=== PATIENT | male | born 1970 | race Caucasian/White ===

== ENCOUNTER 2022-01-14 22:44 | Emergency (ER) | payer OTHER ==
[2022-01-15] MEDS ORDERED: HYDROCODONE/CHLORPHEN 5 ML/OSYR ONE (00:38)
[2022-01-15 00:55] LABS: SARS-COV-2 RT PCR NEGATIVE (NEGATIVE)
[2022-01-15 00:59] LABS: Absolute Lymphocytes (CBC) 3.1 K/uL (0.7-4.9); Hematocrit 41.6 % (39.6-49.0); Lymphocytes % 31.8 % (15.3-44.8); MCV 102.3 fL (80-100); MPV 8.3 fL (7.6-11.3); RBC Red Blood Cell Count 4.07 M/uL (4.33-5.43)
[2022-01-15 01:01] LABS: Protime INR 0.89
[2022-01-15 01:14] LABS: Albumin 3.4 g/dL (3.4-5.0); Bilirubin Direct 0.1 mg/dL (0-0.2); Bilirubin Total 0.6 mg/dL (0.2-1.0); Magnesium 2.5 mg/dL (1.8-2.4); Protein, Total 7.6 g/dL (6.4-8.2); Troponin High Sensitivity 5.7 pg/mL (<58.9)
--- NOTE | 2022-01-15 03:12 | EDPHYS ---
Physician Documentation [facility] Name: Chris Banuelos Age: 51 yrs Sex: Male : 1970 Arrival Date: 01/14/2022 Time: 22:49 Bed 12 Private MD: ED Physician Kashif Mora HPI: 01/14 23:55 This 51 yrs old Male presents to ER via Ambulatory with complaints of Cough. cp 23:55 The patient or guardian reports cough, that is constant, with productive sputum, that cp is bloody, that is purulent. Onset: The symptoms/episode began/occurred last week. Associated signs and symptoms: Pertinent positives: upper back pain, Pertinent negatives: fever. 23:55 Patient reports recent travel by car from [place]. cp Historical: - Allergies: 22:57 No Known Allergies; tw5 - Home Meds: 22:57 Prednisolone Oral [Active]; benzonatate 200 mg oral cap 1 cap 3 times per day [Active]; tw5 - PMHx: 22:57 None; tw5 - PSHx: 22:57 None; tw5 - Immunization history:: Flu vaccine is up to date. - Social history:: Smoking status: Reported history of juuling and/or vaping. ROS: 23:58 Constitutional: Negative for body aches, chills, fever, poor PO intake. cp 23:58 Eyes: Negative for injury, pain, redness, and discharge. cp 23:58 ENT: Positive for sore throat, Negative for drainage from ear(s), ear pain, difficulty swallowing, difficulty handling secretions. 23:58 Cardiovascular: Positive for chest pain, with cough, Negative for edema, palpitations. 23:58 Respiratory: Positive for cough, "sounds productive", hemoptysis, Negative for wheezing. 23:58 Abdomen/GI: Negative for abdominal pain, vomiting, diarrhea, constipation. 23:58 Back: Positive for pain at rest, pain with movement. 23:58 Neuro: Negative for altered mental status, dizziness, headache, numbness, syncope, weakness. 23:58 All other systems are negative. Exam: 23:59 Constitutional: The patient appears in no acute distress, alert, awake, cp non-diaphoretic, non-toxic, well developed, well nourished, obese. 23:59 Head/Face: Normocephalic, atraumatic. cp 23:59 Eyes: Periorbital structures: appear normal, Conjunctiva: normal, no exudate, no injection, Sclera: no appreciated abnormality, Lids and lashes: appear normal, bilaterally. 23:59 ENT: External ear(s): are unremarkable, Ear canal(s): are normal, clear, TM's: dullness, bilaterally, Nose: is normal, Mouth: Lips: moist, Oral mucosa: moist, Posterior pharynx: Airway: no evidence of obstruction, patent, Tonsils: no enlargement, no exudate, swelling, is not appreciated, erythema, that is mild, exudate, is not appreciated. 23:59 Neck: ROM/movement: is normal, is supple, without pain, no range of motions limitations, no meningismus, no nuchal rigidity. 23:59 Chest/axilla: Inspection: normal. 23:59 Cardiovascular: Rate: normal, Rhythm: regular, Edema: is not appreciated, JVD: is not appreciated. 23:59 Respiratory: the patient does not display signs of respiratory distress, Respirations: normal, no use of accessory muscles, no retractions, labored breathing, is not present, Breath sounds: bronchial sounds, that are mild, are heard diffusely, decreased breath sounds, are not appreciated, stridor, is not appreciated, + upper airway congestion. wheezing: is not appreciated. 23:59 Abdomen/GI: Inspection: abdomen appears normal, Palpation: abdomen is soft and non-tender, in all quadrants. 23:59 Back: pain, that is mild, of the left subscapular area and right subscapular area, ROM is normal. 23:59 Musculoskeletal/extremity: DVT Exam: no pain, no swelling, no tenderness. 23:59 Neuro: Orientation: to person, place \\T\\ time. Mentation: is normal, Motor: moves all fours, strength is normal, Sensation: is normal. 01/15 00:54 ECG was reviewed by the Attending Physician. cp Vital Signs: 01/14 22:55 BP 111 / 79; Pulse 77; Resp 20; Temp 98.7; Pulse Ox 97% on R/A; Weight 127.01 kg; tw5 Height 5 ft. 11 in. (180.34 cm); Pain 5/10; 01/15 01:10 BP 116 / 75; Pulse 66; Resp 22; Temp 98; Pulse Ox 99% ; Pain 0/10; pf1 02:30 BP 117 / 70; Pulse 97; Resp 20; Temp 98.2; Pulse Ox 97% ; Pain 0/10; pf1 03:36 BP 112 / 68; Pulse 82; Resp 20; Temp 97.9; Pulse Ox 98% ; Pain 0/10; pf1 01/14 22:55 Body Mass Index 39.05 (127.01 kg, 180.34 cm) tw5 MDM: 01/14 23:06 Patient medically screened. cp 01/15 01:00 Differential Diagnosis: Bronchitis Influenza Pneumonia Other pulmonary embolism, cp COVID-19. 03:10 Data reviewed: vital signs, nurses notes, lab test result(s), EKG, radiologic studies, cp CT scan, plain films. 03:10 Test interpretation: by ED physician or midlevel provider: ECG, plain radiologic cp studies. Counseling: I had a detailed discussion with the patient and/or guardian regarding: the historical points, exam findings, and any diagnostic results supporting the discharge/admit diagnosis, lab results, radiology results, the need for outpatient follow up, a family practitioner, to return to the emergency department if symptoms worsen or persist or if there are any questions or concerns that arise at home. Response to treatment: the patient's symptoms have markedly improved after treatment, and as a result, I will discharge patient. 01/14 23:51 Order name: COVID-19/FLU A+B/RSV; Complete Time: 01:17 pf1 01/15 00:12 Order name: Strep cp 01/15 00:12 Order name: Basic Metabolic Panel; Complete Time: 01: cp 01/15 01:17 Interpretation: Normal except: CL 111; GFR 77; CA 8.2. cp 01/15 00:12 Order name: CBC with Diff; Complete Time: :17 cp 01/15 01:18 Interpretation: Normal except: RBC 4.07; MCV 102.3. cp 01/15 00:12 Order name: D-Dimer; Complete Time: : cp 01/15 00:12 Order name: LFT's; Complete Time: 01: cp 01/15 00:12 Order name: Magnesium; Complete Time: : cp 01/15 00:12 Order name: NT PRO-BNP; Complete Time: 01: cp 01/15 00:12 Order name: PT-INR; Complete Time: 01:17 cp 01/15 00:12 Order name: Troponin HS; Complete Time: 01:17 cp 01/15 00:12 Order name: Ptt, Activated; Complete Time: 01:17 cp 01/15 02:04 Order name: Throat Culture EDMS 01/15 00:12 Order name: XRAY Chest (1 view) 01/15 00:12 Order name: EKG; Complete Time: 00:13 01/15 00:12 Order name: Cardiac monitoring; Complete Time: 01:20 01/15 00:12 Order name: EKG - Nurse/Tech; Complete Time: 00:53 01/15 00:12 Order name: IV Saline Lock; Complete Time: 00:47 01/15 00:12 Order name: Labs collected and sent; Complete Time: 00:47 01/15 00:12 Order name: O2 Per Protocol; Complete Time: 00:47 01/15 00:12 Order name: O2 Sat Monitoring; Complete Time: 00:47 01/15 01:19 Order name: CT Chest For PE Angio cp EC:54 Rate is 64 beats/min. Rhythm is regular. MD interval is normal. QRS interval is normal. cp QT interval is normal. T waves are Inverted in lead III. Interpreted by me. Reviewed by me. Administered Medications: 00:35 Drug: Tussionex Pennkinetic ER (chlorpheniramine-hydrocodone) Suspension 5 ml Route: PO;pf1 01:11 Follow up: Response: Marked relief of symptoms pf1 Disposition: 06:26 Co-signature as Attending Physician, Kashif Mora MD I agree with the assessment and rt plan of care. Disposition Summary: 01/15/22 03:11 Discharge Ordered Location: Home cp Problem: new cp Symptoms: have improved cp Condition: Stable cp Diagnosis - Acute bronchitis, unspecified cp Followup: cp - With: Private Physician - When: 2 - 3 days - Reason: Worsening of condition Discharge Instructions: - Discharge Summary Sheet cp - Acute Bronchitis, Adult cp Forms: - Medication Reconciliation Form cp - Thank You Letter cp - Antibiotic Education cp - Prescription Opioid Use cp - Work release form mw2 Prescriptions: - albuterol sulfate 90 mcg/actuation Inhalation HFA aerosol inhaler - inhale 1 puff by INHALATION route every 4-6 hours; 1 Inhaler; Refills: 0, cp Product Selection Permitted - Ibuprofen 800 mg Oral Tablet - take 1 tablet by ORAL route every 8 hours As needed take with food; 30 tablet; cp Refills: 0, Product Selection Permitted - Zithromax Z-Abner 250 mg Oral Tablet - take 1 tablet by ORAL route as directed for 5 days Day 1 - take two (2) tablets cp one time. Day 2, 3, 4 , 5 take one (1) tablet once daily.; 6 tablet; Refills: 0, Product Selection Permitted - Bromfed DM 2-30-10 mg/5 mL Oral syrup - take 10 milliliter by ORAL route every 4-6 hours; 200 milliliter; Refills: 0, cp Product Selection Permitted Signatures: Dispatcher [employer] EDMS Paul Horn PA PA cp Wood, Tiffany tw5 Kashif Mora MD MD rt Magda deleon RN RN pf1
--- NOTE | 2022-01-15 03:12 | ER ---
Nurse's Notes [facility] Name: Chris Banuelos Age: 51 yrs Sex: Male : 1970 Arrival Date: 01/14/2022 Time: 22:49 Bed 12 Private MD: Diagnosis: Acute bronchitis, unspecified Presentation: 01/14 22:55 Chief complaint: Patient states: "I am coughing, and then I spite up a lot of blood, tw5 that is what made me come in.". Coronavirus screen: Vaccine status: Patient reports receiving the 2nd dose of the covid vaccine. Moderna. Ebola Screen: Patient negative for fever greater than or equal to 101.5 degrees Fahrenheit, and additional compatible Ebola Virus Disease symptoms Patient denies exposure to infectious person. Patient denies travel to an Ebola-affected area in the 21 days before illness onset. Initial Sepsis Screen: Does the patient meet any 2 criteria? No. Patient's initial sepsis screen is negative. Does the patient have a suspected source of infection? Yes: Productive cough/pneumonia. Risk Assessment: Do you want to hurt yourself or someone else? Patient reports no desire to harm self or others. Onset of symptoms is unknown. 22:55 Method Of Arrival: Ambulatory tw5 22:55 Acuity: CONNER 3 tw5 Triage Assessment: 22:57 General: Appears in no apparent distress. uncomfortable, Behavior is calm, cooperative, tw5 appropriate for age. Pain: Complains of pain in back and chest Pain currently is 5 out of 10 on a pain scale. Historical: - Allergies: 22:57 No Known Allergies; tw5 - Home Meds: 22:57 Prednisolone Oral [Active]; benzonatate 200 mg oral cap 1 cap 3 times per day [Active]; tw5 - PMHx: 22:57 None; tw5 - PSHx: 22:57 None; tw5 - Immunization history:: Flu vaccine is up to date. - Social history:: Smoking status: Reported history of juuling and/or vaping. Screenin/29 00:00 Abuse screen: Denies threats or abuse. Nutritional screening: No deficits noted. pf1 Tuberculosis screening: Possible symptoms: recent fever, recent bloody sputum. Fall Risk IV access (20 points). Assessment: 01/14 23:30 General: Appears in no apparent distress. uncomfortable, well groomed, well developed, pf1 Behavior is calm, cooperative, appropriate for age, quiet. 23:30 Pain: Denies pain. Neuro: No deficits noted. Cardiovascular: No deficits noted. pf1 Respiratory: Reports cough that is productive, Patient stated coughed up dark red blood today. Patient stated cough,onset 1 week. Breath sounds are clear bilaterally. 23:30 GI: No deficits noted. : No deficits noted. EENT: No deficits noted. Derm: No pf1 deficits noted. Musculoskeletal: No deficits noted. Vital Signs: 22:55 BP 111 / 79; Pulse 77; Resp 20; Temp 98.7; Pulse Ox 97% on R/A; Weight 127.01 kg; tw5 Height 5 ft. 11 in. (180.34 cm); Pain 5/10; 01/15 01:10 BP 116 / 75; Pulse 66; Resp 22; Temp 98; Pulse Ox 99% ; Pain 0/10; pf1 02:30 BP 117 / 70; Pulse 97; Resp 20; Temp 98.2; Pulse Ox 97% ; Pain 0/10; pf1 03:36 BP 112 / 68; Pulse 82; Resp 20; Temp 97.9; Pulse Ox 98% ; Pain 0/10; pf1 01/14 22:55 Body Mass Index 39.05 (127.01 kg, 180.34 cm) tw5 ED Course: 01/14 22:49 Patient arrived in ED. ja2 22:57 Triage completed. tw5 22:57 Arm band placed on. tw5 23:00 Paul Horn PA is PHCP. cp 23:00 Kashif Mora MD is Attending Physician. cp 23:10 Magda deleon, DELORIS is Primary Nurse. pf1 01/15 00:32 XRAY Chest (1 view) In Process Unspecified. EDMS 00:45 No provider procedures requiring assistance completed. Inserted saline lock: 20 gauge pf1 in left hand, using aseptic technique. Blood collected. 00:48 Strep Sent. pf1 00:48 COVID-19/FLU A+B/RSV Sent. pf1 00:57 Basic Metabolic Panel Sent. rv1 00:57 CBC with Diff Sent. rv1 00:58 D-Dimer Sent. rv1 00:58 LFT's Sent. rv1 00:58 Magnesium Sent. rv1 00:58 NT PRO-BNP Sent. rv1 00:58 PT-INR Sent. rv1 00:58 Troponin HS Sent. rv1 01:20 Strep Sent. pf1 01:30 Patient has correct armband on for positive identification. Bed in low position. Call pf1 light in reach. Side rails up X 1. 02:00 Inserted saline lock: 22 gauge in right antecubital area, using aseptic technique. pf1 02:22 CT Chest For PE Angio In Process Unspecified. EDMS 03:35 IV discontinued, intact, bleeding controlled, No redness/swelling at site. Pressure pf1 dressing applied. 03:36 IV discontinued, intact, bleeding controlled, No redness/swelling at site. Pressure pf1 dressing applied. Administered Medications: 00:35 Drug: Tussionex Pennkinetic ER (chlorpheniramine-hydrocodone) Suspension 5 ml Route: PO;pf1 01:11 Follow up: Response: Marked relief of symptoms pf1 Medication: 03:38 VIS not applicable for this client. pf1 Outcome: 03:11 Discharge ordered by MD. cp 03:37 Discharged to home ambulatory, with family. pf1 03:37 Condition: stable 03:37 Discharge instructions given to patient, significant other, Instructed on discharge instructions, follow up and referral plans. medication usage, Demonstrated understanding of instructions, follow-up care, medications, Prescriptions given X 4. 03:38 Patient left the ED. pf1 Signatures: Dispatcher [employer] EDMS Paul Horn PA PA cp Alexander, Jessica ja2 Wood, Tiffany tw5 Magda deleon RN RN pf1 Madyson Chavira rv1 Corrections: (The following items were deleted from the chart) 02:48 02:46 General: Appears pf1 pf1
[2022-01-15 04:15] VITALS: BP 112/68; TEMP 97.9; O2SAT 98
--- NOTE | 2022-01-15 13:11 | RAD REPORT ---
EXAM DESCRIPTION: RAD - Chest Single View - 01/15/2022 12:30 am CLINICAL HISTORY: The patient is 51 years old and is Male; Cough TECHNIQUE: Frontal view of the chest. COMPARISON: No relevant prior studies available. FINDINGS: Lungs: Mildly prominent interstitial and vascular markings. No consolidation. Pleural space: Unremarkable. No pneumothorax. Heart: Unremarkable. Mediastinum: Unremarkable. Bones/joints: Unremarkable. IMPRESSION: Mildly prominent interstitial and vascular markings. No consolidation. Electronically signed by: Chito Kincaid MD 01/15/2022 12:38 AM CERTIFIED REGISTERED LOCKSMITH Due to temporary technical issues with the PACS/Fluency reporting system, reports are being signed by the in house radiologists without review as a courtesy to insure prompt reporting. The interpreting radiologist is fully responsible for the content of the report.
--- NOTE | 2022-01-15 16:16 | RAD REPORT ---
EXAM DESCRIPTION: CT - Chest For Pe Angio - 01/15/2022 6:52 am CLINICAL HISTORY: The patient is 51 years old and is Male; hemoptysis TECHNIQUE: Axial computed tomographic angiography images of the chest with intravenous contrast. T his CT exam was performed using one or more of the following dose reduction techniques: automated e xposure control, adjustment of the mA and/or kV according to patient size, and/or use of iterative re construction technique. MIP reconstructed images were created and reviewed. Oblique reformatted images were created and reviewed. DLP: 653 mGy*cm COMPARISON: Chest radiograph of the same day. FINDINGS: PULMONARY ARTERIES: Unremarkable. No pulmonary embolism. AORTA: No acute findings. No thoracic aortic aneurysm. LUNGS: Unremarkable. No mass. No consolidation. PLEURAL SPACE: Unremarkable. No significant effusion. No pneumothorax. HEART: Unremarkable. No cardiomegaly. No significant pericardial effusion. No evidence of RV dysfunction. BONES/JOINTS: No acute fracture. No dislocation. SOFT TISSUES: Unremarkable. LYMPH NODES: Unremarkable. No enlarged lymph nodes. IMPRESSION: No pulmonary embolism. No acute intrathoracic abnormality. Electronically signed by: Reji Moreau DO 01/15/2022 2:54 AM CRIPPLE CHASER Due to temporary technical issues with the PACS/Fluency reporting system, reports are being signed by the in house radiologists without review as a courtesy to insure prompt reporting. The interpreting radiologist is fully responsible for the content of the report.
--- NOTE | 2022-01-16 16:28 | EKG ---
Test Date: 2022-01-15 Test Time: 00:51:29 Tacker Elastic Band: RV MEASUREMENT RESULTS: Intervals: Rate: 64 MO: 120 QRSD: 90 QT: 422 QTc: 435 Girdler: P: 31 MO: 120 QRS: 55 T: 16 INTERPRETIVE STATEMENTS: Normal sinus rhythm Normal ECG No previous ECG available for comparison Electronically Signed On 01-16-22 16:23:18 FIELD TRAINING MANAGER by Jimmy Diaz
== END 2022-01-15 03:38 | disposition home or self-care (01) ==
LOC: ER 22:44
DX: J20.9 Acute bronchitis, unspecified (principal); Z20.822 Contact with and (suspected) exposure to COVID-19
CPT/HCPCS: 87070; 85025; 80048; 36415; 83735; 85610; 85379; 80076; 87081; 85730; 84484; 83880; 0241U; 71275; 71045; Q9967; 93005; 99284